=== PATIENT | female | born 1975 | race Caucasian/White ===

== ENCOUNTER 2022-03-18 23:24 | Emergency (ER) | payer BC ==
[2022-03-18] MEDS ORDERED: Morphine 4 MG/ML VIAL ONE (23:46)
[2022-03-19] MEDS ORDERED: HYDROcodone/Acetaminophen 10/325 mg Tablet ONE (00:59)
== END 2022-03-19 01:10 | disposition home or self-care (01) ==
LOC: ERS 23:24
DX: S92.512A Displaced fracture of proximal phalanx of left lesser toe(s), initial encounter for closed fracture (principal); W22.8XXA Striking against or struck by other objects, initial encounter
CPT/HCPCS: 28515; 96372; J2270

== ENCOUNTER 2024-12-25 14:42 | Outpatient (CLI) | payer BC | END 2024-12-25 14:43 | disposition home or self-care (01) | LOC: BICMAMMO 14:42 | PROVIDERS: ATTEND Family Medicine | DX: Z12.31 Encounter for screening mammogram for malignant neoplasm of breast (principal) | CPT/HCPCS: 77063; 77067 ==